=== PATIENT | female | born 1950 | race Caucasian/White ===

== ENCOUNTER 2019-06-03 10:30 | Emergency (ER) | payer OTHER, MEDICARE ==
[~2019-06-03] VITALS: Ht 162.5 cm; Wt 61.7 kg
[~2019-06-03 10:30] MED LIST: TRIMOX500 MG PO
[2019-06-03] MEDS ORDERED: AUGMENTIN 875-875 MG PO (11:16)
[2019-06-03] MEDS ORDERED: ANTIBIOTIC28.4 GM T (11:16)
== END 2019-06-03 11:26 | disposition home or self-care (01) ==
LOC: ED 10:30
DX: S31.133A Puncture wound of abdominal wall without foreign body, right lower quadrant without penetration into peritoneal cavity, initial encounter (principal); Z23 Encounter for immunization; W54.0XXA Bitten by dog, initial encounter; Y93.89 Activity, other specified; Y92.89 Other specified places as the place of occurrence of the external cause; Y99.8 Other external cause status

== ENCOUNTER → 2020-05-02 | Outpatient (CLI) | payer OTHER ==
[~2020-05-02] MED LIST changes: +ANTIBIOTIC28.4 GM T; +AUGMENTIN 875-875 MG PO
== END | disposition home or self-care (01) ==
LOC: RAD 13:38
DX: Z13.820 Encounter for screening for osteoporosis (principal); Z78.0 Asymptomatic menopausal state

== ENCOUNTER → 2023-01-06 | Outpatient (CLI) | payer OTHER | END | disposition home or self-care (01) | LOC: RAD 13:51 | PROVIDERS: ATTEND Family Medicine | DX: M85.88 Other specified disorders of bone density and structure, other site (principal) ==

== ENCOUNTER 2023-05-23 17:03 | Inpatient (IN) | payer OTHER ==
[~2023-05-23] VITALS: Ht 165.1 cm; Wt 61.2 kg
[~2023-05-23 17:03] MED LIST changes: +ALEVE220 M1 PO; +ASPIRIN ADULT L81 M2 PO; +ATORVASTATIN CA40 M1 PO
[2023-05-23 17:12] VITALS: BP 139/58
[2023-05-23 17:53] LABS: BASO % 0.4 % (0.0-1.0); EOS # 0.1 10*3/uL (0.0-0.4); EOS % 1.7 % (1.0-4.0); LYMPH # 1.9 10*3/uL (1.3-4.4); LYMPH % 23.5 % (27.0-41.0); MEAN CELL VOLUME 96.9 fl (81.0-99.0); MEAN CORPUSCULAR HGB 32.4 pg (27.0-31.0); MEAN CORPUSCULAR HGB CONC 33.4 g/dl (33.0-37.0); MEAN PLATELET VOLUME 10.1 fl (9.6-12.3); MONO # 0.6 10*3/uL (0.1-1.0); MONO % 7.1 % (3.0-9.0); NEUT # 5.5 10*3/uL (2.3-7.9); NEUT % 67.1 % (47.0-73.0); PLATELET COUNT AUTOMATED 253 10*3/uL (130-400); RED BLOOD COUNT 3.92 10*6/uL (4.10-5.10); RED CELL DISTRI WIDTH 13.1 % (0-14.5); WHITE BLOOD COUNT 8.2 10*3/uL (4.8-10.8)
[2023-05-23 18:12] LABS: ALKALINE PHOSPHATASE 62 U/L (46-116); BUN 22 mg/dl (9-23); CHLORIDE 108 mmol/L (98-107); POTASSIUM 3.8 mmol/L (3.4-5.1); SGPT/ALT 14 U/L (10-49); TOTAL PROTEIN 6.6 gm/dL (6.0-8.0)
[2023-05-23 18:16] LABS: ACT PARTIAL THROMBO TIME 24.2 SECONDS (20.0-32.1)
[2023-05-23 20:08] VITALS: BP 135/91
[2023-05-23 23:11] VITALS: BP 140/59
[2023-05-24] VITALS (7 sets, daily range): BP systolic 125–150; BP diastolic 56–76
[2023-05-24 05:41] LABS: BUN 16 mg/dl (9-23); CHLORIDE 109 mmol/L (98-107); CHOLESTEROL 174 mg/dL (<200); FREE T4 0.97 ng/dl (0.89-1.76); LDL CHOLESTEROL 100 mg/dL (9-159); POTASSIUM 3.7 mmol/L (3.4-5.1); TRIGLYCERIDES 114 mg/dl (<150)
[2023-05-24 06:15] LABS: BASO % 0.6 % (0.0-1.0); EOS # 0.3 10*3/uL (0.0-0.4); EOS % 4.9 % (1.0-4.0); HEMATOCRIT 38.4 % (37.0-47.0); LYMPH # 2.3 10*3/uL (1.3-4.4); LYMPH % 33.8 % (27.0-41.0); MEAN CELL VOLUME 96.5 fl (81.0-99.0); MEAN CORPUSCULAR HGB 32.2 pg (27.0-31.0); MEAN CORPUSCULAR HGB CONC 33.3 g/dl (33.0-37.0); MEAN PLATELET VOLUME 10.3 fl (9.6-12.3); MONO # 0.7 10*3/uL (0.1-1.0); MONO % 9.7 % (3.0-9.0); NEUT # 3.5 10*3/uL (2.3-7.9); NEUT % 50.6 % (47.0-73.0); PLATELET COUNT AUTOMATED 223 10*3/uL (130-400); RED BLOOD COUNT 3.98 10*6/uL (4.10-5.10); RED CELL DISTRI WIDTH 12.9 % (0-14.5); WHITE BLOOD COUNT 6.9 10*3/uL (4.8-10.8)
[2023-05-24 07:55] LABS: BILIRUBIN Negative (Negative); BLOOD Negative (Negative); CLARITY Clear (Clear); COLOR Yellow (Yellow); GLUCOSE Negative (Negative); KETONE Negative (Negative); LEUKO ESTERASE Negative (Negative); NITRITE Negative (Negative); SPECIFIC GRAVITY 1.025 (1.001-1.030)
[2023-05-24 08:06] LABS: BACTERIA 1+; EPITHELIAL CELLS 0-2; RBC 0-2 rbc/hpf (0-2)
[2023-05-24 15:03] LABS: URINE AMPHETAMINES Negative (1000ng/ml); URINE BARBITURATES Negative (200ng/ml); URINE BENZODIAZEPINES Negative (200ng/ml); URINE CANNABINOIDS (THC) Negative (50ng/ml); URINE COCAINE Negative (300ng/ml); URINE METHADONE Negative (300ng/ml); URINE OPIATES Negative (300ng/ml); URINE PHENCYCLIDINE Negative (25ng/ml)
[2023-05-25] VITALS: BP 121/58
[2023-05-25 08:00] VITALS: BP 110/76
[2023-05-25 12:00] VITALS: BP 119/63
[2023-05-25 16:00] VITALS: BP 125/50
[2023-05-25 20:00] VITALS: BP 114/54
[2023-05-26] VITALS: BP 121/58
[2023-05-26 08:00] VITALS: BP 115/68
[2023-05-26 12:00] VITALS: BP 108/56
[2023-05-26] MEDS ORDERED: ATORVASTATIN CA40 M1 PO (14:56)
[2023-05-26] MEDS ORDERED: CLOPIDOGREL75 MG PO (14:56)
== END 2023-05-26 15:45 | disposition home or self-care (01) | DRG 65 ==
LOC: ED 17:03 → 4E 05-24 00:55 → EDHOLD 05-24 00:55 → 4E 05-24 08:38
PROVIDERS: Emergency Medicine; Family Medicine; ADMIT Internal Medicine; ATTEND Internal Medicine
DX: I63.9 Cerebral infarction, unspecified (principal); G81.94 Hemiplegia, unspecified affecting left nondominant side; R29.700 NIHSS score 0; I11.9 Hypertensive heart disease without heart failure; R73.03 Prediabetes; R73.9 Hyperglycemia, unspecified; R00.1 Bradycardia, unspecified; Z79.899 Other long term (current) drug therapy; Z79.82 Long term (current) use of aspirin; Z98.51 Tubal ligation status; Z83.3 Family history of diabetes mellitus; Z80.1 Family history of malignant neoplasm of trachea, bronchus and lung

== ENCOUNTER → 2023-06-10 | Outpatient (CLI) | payer OTHER ==
[~2023-06-10] MED LIST changes: +CLOPIDOGREL75 MG PO
[2023-06-11 14:08] LABS: ACTIVATED PROTEIN C 2.9 ratio (2.2-3.5)
== END | disposition home or self-care (01) ==
LOC: LAB 16:03
PROVIDERS: ATTEND Psychiatry & Neurology Neurology
DX: I63.50 Cerebral infarction due to unspecified occlusion or stenosis of unspecified cerebral artery (principal); I10 Essential (primary) hypertension

== ENCOUNTER → 2023-09-17 | Outpatient (CLI) | payer OTHER | END | disposition home or self-care (01) | LOC: RAD 08:30 | PROVIDERS: ATTEND Physician Assistant | DX: S62.617A Displaced fracture of proximal phalanx of left little finger, initial encounter for closed fracture (principal); S60.222A Contusion of left hand, initial encounter; M19.042 Primary osteoarthritis, left hand; X58.XXXA Exposure to other specified factors, initial encounter; Y93.89 Activity, other specified; Y92.89 Other specified places as the place of occurrence of the external cause; Y99.8 Other external cause status ==